=== PATIENT | male | born 2000 | race Caucasian/White ===

== ENCOUNTER 2024-04-15 00:33 | Emergency (ER) | payer SELFPAY ==
--- NOTE | ~2024-04-15 | XR_ITS ---
Portable chest x-ray Comparison: None Clinical History: Cough, fever Findings: Lungs are clear, without focal consolidation or pleural effusion. Cardiomediastinal silho uette is unremarkable. Bones and soft tissues are unremarkable. Impression: Clear lungs. Reviewed, dictated and finalized at location . LY SUPPORT WORKER Impression: Clear lungs.
[2024-04-15 00:36] VITALS: BP 110/67; PULSE 55; RESP 16; TEMP 39.1; O2SAT 97
--- NOTE | 2024-04-15 00:38 | PC.NURSE ---
Patient birthday wrong on bracelet. ED Registration notified and removed patient first chart from tracker.
--- NOTE | 2024-04-15 02:37 | ED_ITS ---
HPI - Fever General Chief Complaint: Fever Stated Complaint: fever, cough, hotflashes Time Seen by Provider: 04/15/24 02:23 Mode of arrival: ambulatory Limitations: no limitations History of Present Illness HPI Narrative: This is a 23-year-old male who presents to the ED for chief complaint of fevers, cough, congestion. States that he was at work yesterday and was having a lot of difficulty concentrating. States that he has have body aches. Reports that he has felt very hot with subjective fevers and chills. Denies chest pain, shortness of breath, abdominal pain, nausea, vomiting, diarrhea. Related Data Allergies Allergy/AdvReac Type Severity Reaction Status Date / Time No Known Allergies Allergy Verified 04/15/24 02:57 Review of Systems Review of Systems: All systems as dictated in HPI Exam Narrative: GENERAL: Well-appearing, well-nourished, and in no acute distress. HEAD: Normocephalic, atraumatic. EYES: PERRLA and EOMI. ENT: Nares clear, no rhinorrhea or epistaxis. Mucous membranes moist. Oropharynx without tonsillar hypertrophy exudate or other lesions. NECK: Supple. No adenopathy or masses. CHEST: No respiratory distress. Clear to auscultation. No wheezes rales or rhonchi HEART: Regular rate and rhythm. No murmur heard. Normal peripheral pulses. ABDOMEN: Soft, nontender, nondistended, normal active bowel sounds. MSK: Normal range of motion. No edema. SKIN: Warm, dry, no rash. NEURO: Alert and oriented x4. No focal deficits. PSYCH: Normal mood and affect. Course Vital Signs Vital signs: Vital Signs Temperature 102.3 F H 04/15/24 00:36 Pulse Rate 55 L 04/15/24 00:36 Respiratory Rate 16 04/15/24 00:36 Blood Pressure 110/67 04/15/24 00:36 Pulse Oximetry 97 04/15/24 00:36 Oxygen Delivery Room Air 04/15/24 00:36 Temperature 99.6 F 04/15/24 03:02 Pulse Rate 116 H 04/15/24 03:02 Respiratory Rate 14 04/15/24 03:02 Blood Pressure 132/77 04/15/24 03:02 Pulse Oximetry 96 04/15/24 03:02 Oxygen Delivery Room Air 04/15/24 00:36 MDM - Fever MDM Narrative Medical decision making narrative: This is a 23-year-old male who presents to the ED for chief complaint of flu- like symptoms. Vitals show febrile to 102.3 on arrival. He does not appear toxic on exam. Viral swabs positive for flu. He was given Tylenol and Motrin here. Patient has elected to proceed with Tamiflu after explained that he he is in the window for possible therapeutic effect. Patient will be discharged in stable condition. Supportive measures discussed and return precautions given. Patient is understanding and agreeable with plan for discharge with PCP follow-up. Lab Data Labs: Lab Results 04/15/24 Range/Units 02:29 Influenza A (RT-PCR) Positive A (Negative) Influenza B (RT-PCR) Negative (Negative) RSV (RT-PCR) Negative (Negative) SARS-CoV-2 RNA (RT-PCR) Negative (Negative) Discharge Plan Discharge Clinical Impression: Influenza Patient Disposition: Home, Self-Care Condition: Stable Instructions: Antibiotic Form Additional Instructions: Your exam and imaging today show evidence of influenza. Please stay well hydrated at home and use Tylenol 500 mg and ibuprofen 600 mg every 6 hours as needed for pain and fever control. If you have any new or worsening symptoms please return to the ER for further evaluation. Patient Language: Lithuanian Prescriptions: New oseltamivir [Tamiflu] 75 mg capsule 75 mg PO Q12H 5 Days Qty: 10 0RF Follow-up/Referrals: Mati,Lucila Callahan MD [Primary Care Provider] - Time of Disposition: 03:15
[2024-04-15] MEDS: IBUPROFEN 400 MG TABLET 800 MG PO (02:58)
[2024-04-15] MEDS: ACETAMINOPHEN 500 MG TABLET 1000 MG PO (02:58)
[2024-04-15 03:02] VITALS: BP 132/77; PULSE 116; RESP 14; TEMP 37.6; O2SAT 100; O2SAT 96
[2024-04-15 03:11] LABS: Influenza A QL RT-PCR Positive (Negative); Influenza B QL RT-PCR Negative (Negative); RSV RNA, RT-PCR Negative (Negative); SARS-CoV-2 RNA PCR Negative (Negative)
--- OUTSIDE RECORDS SUMMARY | 2024-04-15 03:25 | XMS_ITS | Patient Health Summary ---
Author Organization [facility] Address [address] [place] [address] Care Team Providers Care Occupational Therapy Teacher Name Role Phone Dane Aguirre APRN-CANVAS REPAIRER Primary Care Provider + Note from [facility],non-owned Affiliates and Associated Physician Practices is amultiple site organization consisting of ambulatory clinics and hospital sitesin [place], [place], [place] and [place]. This disclosure is being madepursuant to the Care Everywhere program and may not contain all information available regarding this patient. Last updated 17.[facility] Allergies No known active allergies Medications * Be aware that medications may not be up to date on this document. Alwaysverify current medications with the patient. 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 (AFLURIA, FLUZONE QUADRIVALENT; 6MO+) (IIV4)(Given 02/03/2017) * MENINGOCOCCAL CONJUGATE (MCV4P)(Given 09/23/2017, 10/21/2013) * MMR VACCINE(Given 05/11/2004, 06/19/2001) * POLIO IPV(Given 05/11/2004, 06/19/2001, 05/06/2001) * TD (AGE 7-ADULT)(Given 10/21/2011) * TDAP, HISTORIC VACCINE(Given 03/10/2020, 10/21/2011) * VARICELLA(Given 10/21/2013, 07/31/2001) Social History Tobacco Use Types Packs/Day Years Used Date Smoking Tobacco: Never Smokeless Tobacco: Never Tobacco Cessation:Counseling Given: No Alcohol Use Standard Drinks/Week Comments Not Currently 0 (1 standard drink = 0.6 oz pur e alcohol) PHQ-2 Answer Date Recorded PHQ2 TOTAL SCORE 2 09/16/2022 Sex and Gender Information Value Date Recorded Sex Assigned at Not on file Gender Identity Not on file Sexual Orientation Not on file Last Filed Vital Signs Vital Sign Reading Time Taken Comments Blood Pressure 104/58 09/16/2022 8:09 AM CDT Pulse 68 09/16/2022 8:09 AM CDT Temperature 36.7 C (98.1 F) 09/16/2022 8:09 AM CDT Respiratory Rate 16 09/16/2022 8:09 AM CDT Oxygen Saturation 98% 09/16/2022 8:09 AM CDT Inhaled Oxygen Concentration - - Weight 56 kg (123 lb 6.4 oz) 09/16/2022 8:09 AM CDT Height 165.1 cm (5' 5 ) 09/16/2022 8:09 AM CDT Body Mass Index 20.53 09/16/2022 8:09 AM CDT Procedures * XR CHEST 2VW(Performed 06/20/2022) Performed for Other chest pain * MAGNESIUM BLOOD(Performed 06/20/2022) * TROPONIN I(Performed 06/20/2022) * COMPREHENSIVE METABOLIC PANEL(Performed 06/20/2022) * CBC W AUTO DIFFERENTIAL(Performed 06/20/2022) * EKG 12-LEAD(Performed 06/20/2022) Performed for Other chest pain * INFLUENZA A+B - POINT OF CARE (AMB) [facility](Performed 02/04/2014) Performed for Fever * XR FOOT RIGHT 3VW OR MORE(Performed 11/01/2013) Performed for Injury, other and unspecified, knee, leg, ankle, and foot Results * XR CHEST 2VW (06/20/2022 1:22 PM CDT) Anatomical Region Laterality Modality Chest Computed Radiogr aphy 06/20/2022 1:25 PM CDT Impressions 06/20/2022 1:26 PM CDT IMPRESSION: No acute cardiopulmonary process is identified. > Interpreting Provider: Beto Lugo DO on 06/20/2022 1:26 PM Narrative 06/20/2022 1:26 PM CDT Chest: 2 View HISTORY: R07.89: Other chest pain COMPARISON: None FINDINGS: The lungs are adequately inflated without consolidation, effusion or pneumothorax. The cardiac chambers are normal appearing. No osseous lesions are identified. Procedure Note Beto Lugo DO - 06/20/2022 Chest: 2 View HISTORY: R07.89: Other chest pain COMPARISON: None FINDINGS: The lungs are adequately inflated without consolidation,effusion or pneumothorax. The cardiac chambers are normal appearing. No osseous lesions are identified. IMPRESSION: No acute cardiopulmonary process is identified. > Interpreting Provider: Beto Lugo DO on 06/20/2022 1:26 PM Cesar Linares MD DIAGNOSTIC IMAGING O RDERABLES * TROPONIN I (06/20/2022 1:10 PM CDT) Troponin I <0.012 <=0.032 ng/mL 06/20/2022 1:48 PM CDT [facility] Blood BLOOD SPECIMEN / Unknown Venipuncture / Unknown 06/20/2022 1:10 PM CDT 06/20/2022 1:14 PM CDT Narrative [facility] - 06/20/2022 1:48 PM CDT The universal definition of myocardial infarction (UT) being at least one value above the 99th percentile of the upper reference limit (0.028 ng/mL combined male/female), along with evidence of UT with at least one of the following: Ischemic symptoms, pathological Q waves on electrocardiogram (ECG), ischemic ECG changes or imaging evidence of new loss of viable myocardium or new regional wall motion abnormality. An elevated TNI value alone is not sufficient to make a the diagnosis of UT, serial sampling is recommended to detect the temporal rise and fall of troponin levels characteristic of UT. Any condition resulting in myocardial cell damage can increase cardiac TNI levels. In addition to UT, these include but are not limited to congestive heart failure, arrhythmia, myocarditis and non-cardiac related causes such as pulmonary embolism, renal failure and sepsis. Cesar Linares MD LAB - CHEMISTRY JAXON ESTEBAN [facility] Organization Address City/State/ZIP Co de Phone Number [facility] [address] [place] [address], [facility] * CBC W AUTO DIFFERENTIAL (06/20/2022 1:10 PM CDT) Pathologist [facility] WBC 5.1 4.0 - 10.0 x10E9/L 06/20/2022 1:23 PM CDT [facility] RBC 5.53 4.40 - 6.10 x10E12/L 06/20/2022 1:23 PM CDT [facility] Hemoglobin 16.3 13.7 - 17.5 gm/dL 06/20/2022 1:23 PM CDT [facility] Hematocrit 50.1 40.1 - 51.0 % 06/20/2022 1:23 PM CDT [facility] MCV 90.6 78.0 - 100.0 fl 06/20/2022 1:23 PM CDT [facility] MCH 29.5 25.6 - 34.0 pg 06/20/2022 1:23 PM CDT [facility] MCHC 32.5 32.3 - 36.5 gm/dL 06/20/2022 1:23 PM CDT [facility] RDW 12.8 11.6 - 14.4 % 06/20/2022 1:23 PM CDT [facility] MPV 10.2 9.4 - 12.4 fl 06/20/2022 1:23 PM CDT [facility] Platelet Count 220 163 - 369 x10E9/L 06/20/2022 1:23 PM CDT [facility] Neutrophils % 51.3 40.0 - 75.0 % 06/20/2022 1:23 PM CDT [facility] Lymphocytes % 33.1 19.3 - 53.1 % 06/20/2022 1:23 PM CDT [facility] Monocytes % 10.3 4.7 - 12.5 % 06/20/2022 1:23 PM CDT [facility] Eosinophils % 4.3 0.7 - 7.0 % 06/20/2022 1:23 PM CDT [facility] Basophils % 0.8 0.1 - 1.2 % 06/20/2022 1:23 PM CDT [facility] Immature Granulocytes 0.2 0 - 0.5 % 06/20/2022 1:23 PM CDT [facility] Neutrophil Absolute 2.64 1.56 - 6.13 x10E9/L 06/20/2022 1:23 PM CDT [facility] Lymphocytes Absolute 1.70 1.18 - 3.74 x10E9/L 06/20/2022 1:23 PM CDT [facility] Monocytes Absolute 0.53 0.24 - 0.86 x10E9/L 06/20/2022 1:23 PM CDT [facility] Eosinophils Absolute 0.22 0.04 - 0.54 x10E9/L 06/20/2022 1:23 PM CDT [facility] Basophils Absolute 0.04 0.01 - 0.08 x10E9/L 06/20/2022 1:23 PM CDT [facility] Immature Granulocytes Absolute 0.01 0 - 0.03 x10E9/L 06/20/2022 1:23 PM CDT [facility] nRBC Auto 0 <=0 /100 WBC 06/20/2022 1:23 PM CDT [facility] nRBC Absolute 0.00 <=0 x10E9/L 06/20/2022 1:23 PM CDT [facility] Blood BLOOD SPECIMEN / Unknown Venipuncture / Unknown 06/20/2022 1:10 PM CDT 06/20/2022 1:14 PM CDT Cesar Linares MD LAB - HEMATOLOGY ORD ERABLES [facility] [address] [place] [address], [facility] * (ABNORMAL) COMPREHENSIVE METABOLIC PANEL (06/20/2022 1:10 PM CDT) [facility] Glucose 82 70 - 125 mg/dL 06/20/2022 1:37 PM CDT [facility] Sodium 141 136 - 145 mmol/L 06/20/2022 1:37 PM CDT [facility] Potassium 3.8 3.4 - 5.1 mmol/L 06/20/2022 1:37 PM CDT [facility] Chloride 103 98 - 107 mmol/L 06/20/2022 1:37 PM CDT [facility] CO2 28 22 - 29 mmol/L 06/20/2022 1:37 PM CDT [facility] Calcium 10.32(H) 8.4 - 10.2 mg/dL 06/20/2022 1:37 PM CDT [facility] Anion Gap 14 10 - 20 mmol/L 06/20/2022 1:37 PM CDT [facility] BUN 10.5 8.4 - 25.7 mg/dL 06/20/2022 1:37 PM CDT [facility] Creatinine 0.84 0.72 - 1.25 mg/dL 06/20/2022 1:37 PM CDT [facility] Alkaline Phosphatase 59 40 - 150 U/L 06/20/2022 1:37 PM CDT [facility] ALT 17 5 - 55 U/L 06/20/2022 1:37 PM CDT [facility] AST 17 5 - 34 U/L 06/20/2022 1:37 PM CDT [facility] Protein Total 8.2 6.4 - 8.3 gm/dL 06/20/2022 1:37 PM CDT [facility] Albumin 4.9 3.5 - 5.0 gm/dL 06/20/2022 1:37 PM CDT [facility] Globulin Total 3.3 2.6 - 4.0 gm/dL 06/20/2022 1:37 PM CDT [facility] Albumin/Globulin Ratio 1.5 0.9 - 1.6 06/20/2022 1:37 PM CDT [facility] Bilirubin Total 0.6 0.2 - 1.2 mg/dL 06/20/2022 1:37 PM CDT [facility] eGFR >90 >90 mL/min/1. 73m2 06/20/2022 1:37 PM CDT [facility] Comment:The GFR result was c alculated using the updated CKD-EPI Creatinine Equation (2020). Blood BLOOD SPECIMEN / Unknown Venipuncture / Unknown 06/20/2022 1:10 PM CDT 06/20/2022 1:14 PM CDT Cesar Linares MD LAB - CHEMISTRY JAXON ESTEBAN Performing Organization Address [facility] Co de Phone Number [facility] [address] * MAGNESIUM BLOOD (06/20/2022 1:10 PM CDT) Pathologist [facility] Magnesium 2.1 1.6 - 2.6 mg/dL 06/20/2022 1:37 PM CDT [facility] Blood BLOOD SPECIMEN / Unknown Venipuncture / Unknown 06/20/2022 1:10 PM CDT 06/20/2022 1:14 PM CDT Cesar Linares MD LAB - CHEMISTRY JAXON ESTEBAN Performing Organization Address [facility] de Phone Number [facility] [address] * EKG 12-LEAD (06/20/2022 12:55 PM CDT) Ventricular Rate 56 BPM [facility] Atrial Rate 56 BPM [facility] P-R Interval 118 ms [facility] QRS Duration ms 108 ms [facility] Q-T Interval ms 366 ms [facility] QTC Calculation (Bezet) 353 ms [facility] Calculated R Fidelity 145 degrees [facility] Calculated T Fidelity 132 degrees [facility] Interpretation EKG Sinus bradycardia Right axis deviation Abnormal ECG No previous ECGs available Confirmed by MD Marie, [facility] ([id number]) on 06/20/2022 1:39:30 PM [facility] 06/20/2022 12:5 5 PM CDT 06/20/2022 1:39 PM CDT Cesar Linares MD ECG ORDERABLES [facility] * INFLUENZA A+B - POINT OF CARE (AMB) [facility] (02/04/2014 7:09 PM CANVAS REPAIRER) Influenza A Antigen Rapid Negative Negative Influenza B Antigen Rapid Negative Negative Influenza Internal Control Nasopharyngeal swab (specimen) NASOPHARYNGEAL SWAB / Unknown 02/04/2014 7:09 PM CANVAS REPAIRER Ya Caldwell APRN-JONY LAB - POINT OF CARE ORDERABLES * XR FOOT 3+ VW RIGHT (11/01/2013 12:35 PM CDT) Anatomical Region Laterality Modality Ankle / Foot Radiographic Allegra ging 11/01/2013 12:3 9 PM CDT Impressions 11/01/2013 1:17 PM CDT Negative. Narrative 11/01/2013 1:17 PM CDT RIGHT FOOT, (THREE VIEWS): 11/01/2013 CLINICAL HISTORY: Trauma. FINDINGS: Views of the foot reveal no fracture, lytic or blastic lesions. Alignment of the bony structures appears normal. Joint spaces are preserved. Ankle mortise is intact. Procedure Note Yara Blount MD - 11/01/2013 RIGHT FOOT, (THREE VIEWS): 11/01/2013 CLINICAL HISTORY: Trauma. FINDINGS: Views of the foot reveal no fracture, lytic or blastic lesions. Alignment of the bony structures appears normal. Joint spaces are preserved. Ankle mortise is intact. IMPRESSION Negative. [place] [facility] ORDERABLES Care Teams Occupational Therapy Teacher Relationship Specialty Start Date End Date Dane Aguirre APRN-CNP [address] [place] [address] PCP - General Nurse Practitioner 09/16/22
--- OUTSIDE RECORDS SUMMARY | 2024-04-15 03:25 | XMS_ITS | Clinical Summary ---
Author Organization [facility] [employer] Address [address] [place] [address] Care Team Providers Care Carburizing Furnace Operator Name Role Phone Timothy Dane TRAN-REVIEW CONSULTANT Primary Care Provider + Source Comments [facility],non-owned Affiliates and Associated Physician Practices is amultiple site organization consisting of ambulatory clinics and hospital sitesin [place], [place], [place] and [place]. This disclosure is being madepursuant to the Care Everywhere program and may not contain all information available regarding this patient. Last updated 17.[facility] [employer] Allergies No known active allergies Medications * Be aware that medications may not be up to date on this document. Alwaysverify current medications with the patient. 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 (A FLURIA, FLUZONE QUADRIVALENT; 6MO+) (IIV4) 02/03/2017 MENINGOCOCCAL CONJUGATE (MCV4P) 09/23/2017,10/21 MMR VACCINE 05/11/2004,06/19/2001 POLIO IPV 05/11/2004,06/19/2001,05/06/2001 TD (AGE 7-ADULT) 10/21/2011 TDAP, HISTORIC VACCINE 03/10/2020,10/21/2011 VARICELLA 10/21/2013,07/31/2001 Social History Tobacco Use Types Packs/Day Years [...] Mass Index 20.53 09/16/2022 8:09 AM CDT Plan of Treatment Health Maintenance Due Date Last Done Comments HIV SCREENING 11/20/2014 HEPATITIS C SCREENING 11/16/2017 COVID-19 VACCINE ( season) 2023 INFLUENZA VACCINE (#1) 2023 02/03/2017 DEPRESSION SCREENING 03/10/2024 09/16/2022 DTAP/TDAP/TD VACCINES (8 - Td or Tdap) 03/10/2030 03/10/2020, 10/21/2011, 10/21/2011, Additional history exists ZOSTER VACCINE (1 of 2) 11/20/2049 HIB VACCINE Completed 04/03/2001 HEPATITIS B VACCINE Completed 11/24/2001, 05/06/2001, 04/03/2001 HPV VACCINE Completed 09/30/2014, 04/10, 10/21/2013 MENINGOCOCCAL VACCINE Completed 09/23/2017, 014 MENINGOCOCCAL (Group B) VACCINE Aged Out No longer eligible based on patient's age to complete this topic PNEUMOCOCCAL VACCINE Aged Out No long er eligible based on patient's age to complete this topic Care Teams Carburizing Furnace Operator Relationship Specialty Start Date End Date Dane Aguirre APRN-JONY [address] [place] [address] PCP - General Nurse Practitioner 09/16/22
--- OUTSIDE RECORDS SUMMARY | 2024-04-15 03:25 | XMS_ITS | Clinical Summary ---
Author Organization [facility] Address [address] [place] [id number] Care Team Providers Care Fountain Clerk Name Role Phone Lori Cheema MD Primary Care Provider [phone] Social History Tobacco Use Types Packs/Day Years Used Date Smoking Tobacco: Never Assessed Sex and Gender Information Value Date Recorded Sex Assigned at Not on file Legal Sex Male 2:27 PM CDT Gender Identity Not on file Sexual Orientation Not on file Plan of Treatment Health Maintenance Due Date Last Done Comments Annual Physical 11/20/2002 Hepatitis C 11/20/2017 COVID-19 Vaccine ( season) 2023 Influenza Adult (#1) 2023 02/03/2017 DTaP, Tdap and Td Vaccines (7 - Td or Tdap) 03/10/2030 03/10/2020, 10/21/2011, 10/21/2011, Additional history exists Hepatitis B Vaccines Completed 11/24/2001, 05/06/2001, 04/03/2001 HPV Vaccines Completed 09/30/2014, 04/10, 10/21/2013 Meningococcal Vaccine Completed 09/23/2017, 014 Meningococcal B Vaccine Aged Out No l onger eligible based on patient's age to complete this topic Pneumococcal Vaccine: Pediatrics (0 to 5 Years) and At-Risk Patients (6 to 64 Years) Aged Out No longer eligible based on patient's age to complete this topic RSV Immunizations Under 20 Months Aged Out No longer eligible based on patient's age to complete this topic Insurance [facility] Care Teams Fountain Clerk Relationship Specialty Start Date End Date Lori Cheema MD PCP - General FAMILY PRACTICE 10/10/22
--- OUTSIDE RECORDS SUMMARY | 2024-04-15 03:25 | XMS_ITS | Referral Summary ---
Author Organization [facility] [employer] Address [address] [place] [address] Care Team Providers Care Documentation Lead Name Role Phone Dane Aguirre APRN-ASSEMBLER MECHANICAL ORDNANCE Primary Care Provider + Source Comments [facility],non-owned Affiliates and Associated Physician Practices is amultiple site organization consisting of ambulatory clinics and hospital sitesin [place], [place], [place] and [place]. This disclosure is being madepursuant to the Care Everywhere program and may not contain all information available regarding this patient. Last updated 17.[facility] [employer] Allergies No known active allergies Medications * [...] 09/16/2022 8:09 AM CDT Plan of Treatment Not on file Care Teams Documentation Lead Relationship Specialty Start Date End Date Dane Aguirre APRN-ASSEMBLER MECHANICAL ORDNANCE [address] [place] [address] PCP - General Nurse Practitioner 09/16/22
[2024-04-15 03:28] VITALS: TEMP 36.5
[2024-04-15 04:05] VITALS: BP 121/76; PULSE 108; RESP 14; TEMP 36.5; O2SAT 100
== END 2024-04-15 04:06 | disposition home or self-care (01) ==
LOC: ANHED 03:23
PROVIDERS: Emergency Provider Physician Assistant
DX: J11.1 Influenza due to unidentified influenza virus with other respiratory manifestations (principal); Z20.822 Contact with and (suspected) exposure to COVID-19
CPT/HCPCS: 71045; 87637; 99283; A9270